=== PATIENT | male | born 1955 | race Caucasian/White ===

== ENCOUNTER 2018-12-26 18:27 | Emergency (ER) | payer BC ==
[2018-12-26] MEDS ORDERED: diphenhydrAMINE 50 MG/ML VIAL ONE (19:28)
[2018-12-26] MEDS ORDERED: Ketorolac Tromethamine 30 MG/ML VIAL ONE (19:28)
[2018-12-26] MEDS ORDERED: Metoclopramide HCl 10 MG/2 ML VIAL ONE (19:28)
--- NOTE | 2018-12-26 21:16 | CT ---
FCT head without contrast: Multiple axial tomograms obtained through the head without IV enhancement. INDICATIONS: Headache COMPARISON: None FINDINGS: Ventricles have normal size and position. No evidence of intracranial mass, hemorrhage, edema, or infarct. Visualized sinuses and mastoids appear clear. Bony calvarium appears unremarkable. IMPRESSION: No acute finding
[2018-12-26 21:20] LABS: Hemoglobin 12.3 g/dL (14.0-18.0); Mean Corpuscular HGB CONC 31.6 g/dL (32.0-36.0); Mean Corpuscular Hemoglobin 24.7 pg (27.0-31.0); Mean Corpuscular Volume 78.1 fL (78.0-98.0); Mean Platelet Volume 7.4 fL (7.4-10.4); Platelet Count 279 thou/uL (130-400); RBC Distribution Width 14.1 % (11.5-14.5); Red Blood Cell (RBC) Count 4.97 mill/uL (4.70-6.10); White Blood Cell (WBC) Count 5.2 thou/uL (4.8-10.8)
[2018-12-26 21:31] LABS: ALT (SGPT) 18 U/L (8-55); AST (SGOT) 17 U/L (5-34); Albumin 3.5 g/dL (3.4-4.8); Alkaline Phosphatase 79 U/L (40-150); Anion Gap 9 mmol/L (10-20); BUN (Urea Nitrogen) 15 mg/dL (8.4-25.7); Bilirubin, Total 0.3 mg/dL (0.2-1.2); CRP (Inflammatory) Less than 0.50 mg/dL (= or < 0.5); Calc. Creatinine Clearance 0 mL/min (70-130); Calcium 8.2 mg/dL (7.8-10.44); Carbon Dioxide 27 mmol/L (23-31); Chloride 106 mmol/L (98-107); Estimated GFR-MDRD 73; Globulin 2.7 g/dL (2.4-3.5); Glucose 91 mg/dL (80-115); Protein, Total 6.2 g/dL (5.8-8.1); Sodium 138 mmol/L (136-145)
[2018-12-26] MEDS ORDERED: Acetaminophen 500 MG TAB ONE (21:43)
[2018-12-26 21:45] LABS: Band 1 % (5-11); Eosinophils 4 % (0-10); Lymphocytes 13 % (21-51); MDiff Complete? YES; Monocytes 15 % (0-10); Neutrophil 66 % (42-75); Reactive Lymphocytes 1 % (0-10)
== END 2018-12-26 23:30 | disposition home or self-care (01) ==
LOC: ERS 18:27
DX: F07.81 Postconcussional syndrome (principal)
CPT/HCPCS: 36415; 70450; 80053; 85025; 85652; 86140; 96361; 96365; 96367; 96375; J1200; J1885; J2765; J3475; J7050

== ENCOUNTER 2019-01-29 20:21 | Emergency (ER) | payer BC | END 2019-01-29 21:43 | disposition left against medical advice (07) | LOC: ERS 20:21 | DX: R51 Headache (principal) | CPT/HCPCS: 99283 ==

== ENCOUNTER 2019-07-19 06:51 | Outpatient (CLI) | payer OTHER ==
[2019-07-19 12:13] LABS: Hemoglobin 12.4 g/dL (14.0-18.0); Mean Corpuscular Hemoglobin 23.7 pg (27.0-31.0); Mean Corpuscular Volume 76.3 fL (78.0-98.0); Mean Platelet Volume 7.6 fL (7.4-10.4); Platelet Count 418 thou/uL (130-400); RBC Distribution Width 13.8 % (11.5-14.5); Red Blood Cell (RBC) Count 5.24 mill/uL (4.70-6.10); White Blood Cell (WBC) Count 7.3 thou/uL (4.8-10.8)
[2019-07-19 12:34] LABS: Anion Gap 13 mmol/L (10-20); BUN (Urea Nitrogen) 14 mg/dL (8.4-25.7); Calc. Creatinine Clearance 0 mL/min (70-130); Calcium 9.2 mg/dL (7.8-10.44); Carbon Dioxide 26 mmol/L (23-31); Chloride 104 mmol/L (98-107); Estimated GFR-MDRD 79; Glucose 84 mg/dL (80-115); Potassium 4.3 mmol/L (3.5-5.1); Sodium 139 mmol/L (136-145)
--- NOTE | 2019-07-23 09:57 | EKG ---
Test Reason : Blood Pressure : / mmHG Vent. Rate : 083 BPM Atrial Rate : 083 BPM P-R Int : 146 ms QRS Dur : 086 ms QT Int : 362 ms P-R-T Axes : 051 034 052 degrees QTc Int : 425 ms Normal sinus rhythm Cannot rule out Anterior infarct , age undetermined Abnormal ECG No previous ECGs available Confirmed by VARGAS BRAUN MD ([id number]) on 07/23/2019 9:57:08 AM Referred By: ALIE Confirmed By:VARGAS BRAUN MD
== END 2019-07-19 06:52 | disposition home or self-care (01) ==
LOC: LABBT 06:51
PROVIDERS: ATTEND Orthopaedic Surgery
DX: Z01.818 Encounter for other preprocedural examination (principal); M75.41 Impingement syndrome of right shoulder; M75.101 Unspecified rotator cuff tear or rupture of right shoulder, not specified as traumatic; M19.011 Primary osteoarthritis, right shoulder
CPT/HCPCS: 80048; 85027; 93005; 93010

== ENCOUNTER 2019-07-22 12:04 | Day surgery (SDC) | payer OTHER ==
[2019-07-19 11:33] VITALS: BMI 28.6
[2019-07-22] MEDS ORDERED: Fentanyl 100 MCG/2 ML VIAL ONE ×2 (13:43→15:26)
[2019-07-22] MEDS ORDERED: Midazolam HCl 2 mg/2 ml Vial ONE (13:43)
[2019-07-22] MEDS ORDERED: Ketorolac Tromethamine 30 MG/ML VIAL IVP PRN (13:52)
[2019-07-22] MEDS ORDERED: traMADol HCl 50 MG TAB PO PRN ×2 (13:52)
[2019-07-22] MEDS ORDERED: Ondansetron PF 4 MG/2 ML Vial IVP PRN (13:52)
[2019-07-22] MEDS ORDERED: Zolpidem Tartrate 5 MG TAB PO PRN (13:52)
[2019-07-22] MEDS ORDERED: Promethazine HCl 25 MG/ML VIAL IM PRN (13:52)
[2019-07-22] MEDS ORDERED: Ropivacaine 0.2% 550 ML 550 ML NERVE BLCK SCH (13:52)
[2019-07-22] MEDS ORDERED: HYDROcodone/Acetaminophen 10/325 mg Tablet PO PRN ×2 (13:52)
--- NOTE | 2019-07-22 21:57 | OP ---
DATE OF PROCEDURE: 07/22/2019 PREOPERATIVE DIAGNOSES: 1. Severe impingement of the right shoulder with rotator cuff tear. 2. Right acromioclavicular arthritis. POSTOPERATIVE DIAGNOSES: 1. Severe impingement of the right shoulder with rotator cuff tear. 2. Right acromioclavicular arthritis. PROCEDURES PERFORMED: Arthroscopy of the right shoulder with subacromial decompression, rotator cuff repair, and excision of distal clavicle. ANESTHESIA: General. TECHNIQUE: The patient had a block performed preoperatively. He was given preoperative IV antibiotics, taken to operating room, placed in a supine position. Satisfactory general anesthesia was performed. The patient was then placed in the left lateral decubitus position. All bony prominences were well padded. The right upper extremity was placed in 15 pounds traction. The right shoulder and upper extremity were sterilely prepped and draped in usual fashion. The shoulder was then arthroscoped through the usual posterior, anterolateral, and superolateral portals. Upon entering the shoulder joint, the shoulder joint itself has no arthritic changes. Articular cartilage over the humerus and glenoid looked very good. The biceps tendon was intact and was normal. The labrum was also thoroughly inspected and probed and was normal. The undersurface of the supraspinatus tendon did have tearing. The subacromial space was then entered. There was significant amount of bursitis and much of the bursa was removed with a shaver. 90-degree ArthroWand was used to remove the soft tissue from underneath the acromion and at the acromioclavicular joint. A high-speed bur was used to thin down the acromion, also through the anterior portal the bur was used to excise the distal clavicle. The supraspinatus tendon tear was then visualized by removing more of the inflamed bursa and the rotator cuff tear was repaired using two 2.75 PushLock anchors, both in the medial row and the lateral row and using FiberTape. This provided excellent repair and fixation of the rotator cuff. During the procedure, all of the debris was irrigated out of the shoulder and subacromial space. The instruments were removed. The portals were closed with 3-0 Rapide. Sterile dressing was applied. The arm was taken out of traction and the patient was placed in the supine position. He was awakened, extubated, and transferred to recovery room in stable condition. ESTIMATED BLOOD LOSS: Minimal. COMPLICATIONS: None. DISCHARGE MEDICATIONS: Bruce 10 one every 4-6 hours as needed for pain #40. Follow up in my office in 1 week. The patient was placed in a shoulder immobilizer. Job ID: [id number]
== END 2019-07-22 20:15 | disposition home or self-care (01) ==
LOC: SDC 12:04
PROVIDERS: ATTEND Orthopaedic Surgery
PROC: 0RNJ4ZZ Release Right Shoulder Joint, Percutaneous Endoscopic Approach (ICD-10-PCS; principal; 2019-07-22)
PROC: 0PB94ZZ Excision of Right Clavicle, Percutaneous Endoscopic Approach (ICD-10-PCS; principal; 2019-07-22)
PROC: 0LQ14ZZ Repair Right Shoulder Tendon, Percutaneous Endoscopic Approach (ICD-10-PCS; principal; 2019-07-22)
PROC: 3E0T3BZ Introduction of Anesthetic Agent into Peripheral Nerves and Plexi, Percutaneous Approach (ICD-10-PCS; principal; 2019-07-22)
PROC: 3E0T3GC Introduction of Other Therapeutic Substance into Peripheral Nerves and Plexi, Percutaneous Approach (ICD-10-PCS; principal; 2019-07-22)
DX: S46.011A Strain of muscle(s) and tendon(s) of the rotator cuff of right shoulder, initial encounter (principal); M19.011 Primary osteoarthritis, right shoulder; M25.811 Other specified joint disorders, right shoulder; M75.51 Bursitis of right shoulder; G89.18 Other acute postprocedural pain; Z79.1 Long term (current) use of non-steroidal anti-inflammatories (NSAID); Z79.899 Other long term (current) drug therapy; V89.2XXA Person injured in unspecified motor-vehicle accident, traffic, initial encounter
CPT/HCPCS: A4306; C1713; J0690; J2250; J2795; J3010

== ENCOUNTER 2020-06-12 09:01 | Outpatient (CLI) | payer OTHER ==
[~2020-06-12 09:01] MED LIST: EPINEPHrine 1 MG/ML AMP ONE; Gadobenate Dimeglumine 529 MG/1 ML (20ML VIAL) ONE; Iopamidol 300 61% 50 ML VIAL FS ONE; Lidocaine 1% PF 10 ML AMP ONE
--- NOTE | 2020-06-12 10:48 | RAD ---
Right shoulder arthrogram fluoroscopic guided HISTORY: Internal derangement. Shoulder pain. FINDINGS: After explaining the procedure and answering all questions, the anterior aspect of the righ t shoulder was prepped and draped in usual sterile fashion. Sterile technique, buffered local anesthesia, fluoroscopic guidance, and an anterior approach were us ed to carefully advance the tip of a 22-gauge spinal needle to the joint capsule at the level of the humeral head. Approximately 8 cc of a liquid mixture containing normal saline, 1% lidocaine, iodinated contrast, an d small amounts of gadolinium and epinephrine were then instilled into the joint capsule under fluoroscopic control. Needle was removed. Patient tolerated the procedure well and was transferred to MRI in good condition for further imaging. Spot images show metallic anchors of the humeral head from prior surgery. No gross leakage of contrast from the joint capsule evident. Fluoroscopy time 0.3 minutes. IMPRESSION : Technically successful right shoulder arthrogram. No full-thickness rotator cuff tear evident. MRI is pending.
--- NOTE | 2020-06-12 12:53 | MRI ---
MR ARTHROGRAM OF THE RIGHT SHOULDER: Date: 06/12/2020 INDICATION: History of right shoulder pain. COMPARISON: Right shoulder arthrogram radiograph dated 06/12/2020. FINDINGS: Motion artifact limits image detail on the examination. The patient also could not tolerate the ABER examination. There is postprocedural change of a right rotator cuff repair. There is now a full thick ness tear involving the posterior supraspinatus and anterior infraspinatus at the footprint measuring 0.8 x 0.9 cm in its greatest mediolateral AP dimensions respectively. There is tendinosis in the sup raspinatus and infraspinatus. Biceps tendon is located. Biceps anchor complex is intact. Glenoid labr um is intact. There is mild AC joint hypertrophy. There is postprocedural change of a distal clavicle excision. No rotator cuff atrophy is grossly evident. IMPRESSION: 1. Full thickness rotator cuff tear involving the posterior supraspinatus and anterior infraspinatus . 2. Postprocedural change of prior rotator cuff repair and prior distal clavicle excision. POS: BH
== END 2020-06-12 09:02 | disposition home or self-care (01) ==
LOC: RAD 09:01
PROVIDERS: ATTEND Orthopaedic Surgery
DX: M75.101 Unspecified rotator cuff tear or rupture of right shoulder, not specified as traumatic (principal); M75.121 Complete rotator cuff tear or rupture of right shoulder, not specified as traumatic; Z98.890 Other specified postprocedural states
CPT/HCPCS: 23350; A9577; J0171; J2001; Q9967

== ENCOUNTER 2020-08-07 07:23 | Outpatient (CLI) | payer OTHER ==
[2020-08-07 15:22] LABS: Hemoglobin 11.5 g/dL (14.0-18.0); Mean Corpuscular HGB CONC 30.6 G/DL (32.0-36.0); Mean Platelet Volume 9.9 fl (7.4-10.4); Platelet Count 568 10x3/uL (130-400); RBC Distribution Width 16.8 % (11.5-14.5); Red Blood Cell (RBC) Count 5.22 10x6/uL (4.40-5.80); White Blood Cell (WBC) Count 6.8 10x3/uL (4.5-11.0)
[2020-08-07 15:28] LABS: Anion Gap 14 mmol/L (10-20); BUN (Urea Nitrogen) 13 mg/dL (8.4-25.7); Calc. Creatinine Clearance 0 mL/min (70-130); Calcium 9.2 mg/dL (7.8-10.44); Carbon Dioxide 24 mmol/L (23-31); Chloride 102 mmol/L (98-107); Estimated GFR-MDRD 78; Glucose 103 mg/dL (80-115); Potassium 4.1 mmol/L (3.5-5.1); Sodium 136 mmol/L (136-145)
[2020-08-08 13:39] LABS: SARS-CoV-2 MS2 Positive; SARS-CoV-2 N Gene Negative; SARS-CoV-2 S Gene Negative; SARS-CoV-2 by NAA Not Detected (NotDetected); SARS-CoV-2 orf1ab Negative
--- NOTE | 2020-08-11 08:36 | EKG ---
Test Reason : PREOP Blood Pressure : / mmHG Vent. Rate : 077 BPM Atrial Rate : 077 BPM P-R Int : 142 ms QRS Dur : 088 ms QT Int : 362 ms P-R-T Axes : 069 056 058 degrees QTc Int : 409 ms Normal sinus rhythm Normal ECG No previous ECGs available Confirmed by VARGAS BRAUN MD ([id number]) on 08/11/2020 8:35:58 AM Referred By: ALIE Confirmed By:VARGAS BRAUN MD
== END 2020-08-07 07:24 | disposition home or self-care (01) ==
LOC: LABBT 07:23
PROVIDERS: ATTEND Orthopaedic Surgery
DX: Z01.818 Encounter for other preprocedural examination (principal); M75.101 Unspecified rotator cuff tear or rupture of right shoulder, not specified as traumatic; Z20.828 Contact with and (suspected) exposure to other viral communicable diseases
CPT/HCPCS: 80048; 85027; 87635; 93005; 93010; U0003

== ENCOUNTER 2020-08-10 06:04 | Day surgery (SDC) | payer OTHER ==
[2020-08-09 11:20] VITALS: BMI 25.7
[2020-08-10] MEDS ORDERED: Fentanyl 100 MCG/2 ML VIAL ONE ×3 (06:37→10:17)
[2020-08-10] MEDS ORDERED: Midazolam HCl 2 mg/2 ml Vial ONE (06:37)
[2020-08-10] MEDS ORDERED: Bupivacaine 0.25% HCL 30 ML VIAL ONE (08:14)
[2020-08-10] MEDS ORDERED: Lidocaine 1% w/Epinephrine 1:100K 20 ML VIAL ONE (08:14)
[2020-08-10] MEDS ORDERED: Ondansetron PF 4 MG/2 ML Vial IVP PRN (08:15)
[2020-08-10] MEDS ORDERED: Zolpidem Tartrate 5 MG TAB PO PRN (08:15)
[2020-08-10] MEDS ORDERED: Ropivacaine 0.2% 550 ML 550 ML NERVE BLCK SCH (08:15)
[2020-08-10] MEDS ORDERED: Ketorolac Tromethamine 30 MG/ML VIAL IVP PRN (08:15)
[2020-08-10] MEDS ORDERED: HYDROcodone/Acetaminophen 5/325 mg Tablet PO PRN ×2 (08:15)
[2020-08-10] MEDS ORDERED: traMADol HCl 50 MG TAB PO PRN ×2 (08:15)
[2020-08-10] MEDS ORDERED: Promethazine HCl 25 MG/ML VIAL IM PRN (08:15)
[2020-08-10] MEDS ORDERED: Glycopyrrolate 0.2 MG/ML 5 ML SYRINGE ONE (09:46)
[2020-08-10] MEDS ORDERED: Rocuronium Bromide 10 MG/ML (10ML VIAL) ONE (09:46)
[2020-08-10] MEDS ORDERED: Ondansetron PF 4 MG/2 ML Vial ONE (09:46)
[2020-08-10] MEDS ORDERED: Ropivacaine 0.2% HCl/PF (40 MG/20 ML VIAL) ONE (09:46)
[2020-08-10] MEDS ORDERED: Ropivacaine 0.5% HCl/PF (150 MG/30 ML VIAL) ONE (09:46)
[2020-08-10] MEDS ORDERED: PROPOFOL 200 MG/20 ML VIAL ONE (09:46)
[2020-08-10] MEDS ORDERED: Ketorolac Tromethamine 30 MG/ML VIAL ONE (09:46)
[2020-08-10] MEDS ORDERED: PHENYLEPHRINE-NS 100 MCG/ML 10 ML SYRINGE ONE (09:46)
[2020-08-10] MEDS ORDERED: Dexamethasone 20 MG/5 ML VIAL ONE (09:46)
[2020-08-10] MEDS ORDERED: Lidocaine 1% PF 5 ML VIAL ONE (09:46)
--- NOTE | 2020-08-10 10:06 | OP ---
DATE OF PROCEDURE: 08/10/2020 PREOPERATIVE DIAGNOSIS: Recurrent tear of rotator cuff of the right shoulder. POSTOPERATIVE DIAGNOSIS: Recurrent tear of rotator cuff of the right shoulder. PROCEDURES PERFORMED: Arthroscopy of the right shoulder with subacromial decompression and rotator cuff repair. ANESTHESIA: General. DESCRIPTION OF PROCEDURE: The patient had a supraclavicular block performed prior to surgery. He was given preoperative IV antibiotics, taken to the operating room, placed in supine position. Satisfactory general anesthesia was performed. The patient was then placed in the left lateral decubitus position. All bony prominences were well padded. The right upper extremity was placed in 15 pounds of traction. The right shoulder and upper extremity were sterilely prepped and draped in usual fashion. The shoulder was scoped initially through the posterior portal. There were no arthritic changes in the shoulder joint. The biceps tendon was intact. The labrum was intact. The subacromial space was entered. There was quite a bit of scar tissue that had formed. Scar tissue was removed using both 90-degree ArthroWand and a shaver as well as high-speed harrison. The undersurface of the acromion was cleaned up and thinned down. The rotator cuff was inspected and there were several recurrent tears at the junction of the posterior aspect of the supraspinatus tendon and the superior aspect of the infraspinatus tendon. The ArthroWand was used to clean up the tears, and then the rotator cuff was repaired using two anchors medially, two anchors laterally with Arthrex 4.75 anchors and FiberTape in a crisscrossing configuration. This provided excellent repair of the rotator cuff. During the procedure, all the debris was irrigated out of the shoulder joint and subacromial space. The instruments were removed. The portals were closed using 3-0 Rapide and sterile dressing was applied. The arm was taken out of traction. He was placed in a shoulder immobilizer. He was then awakened, extubated, and transferred to recovery room in stable condition. ESTIMATED BLOOD LOSS: Minimal. COMPLICATIONS: None. DISCHARGE MEDICATION: Bybee 10 one every 6 hours as needed for pain, #40. Follow up in my office next week. Job ID: [id number]
== END 2020-08-10 11:40 | disposition home or self-care (01) ==
LOC: SDC 06:04
PROVIDERS: ATTEND Orthopaedic Surgery
PROC: 0LQ14ZZ Repair Right Shoulder Tendon, Percutaneous Endoscopic Approach (ICD-10-PCS; principal; 2020-08-10)
PROC: 3E0T3BZ Introduction of Anesthetic Agent into Peripheral Nerves and Plexi, Percutaneous Approach (ICD-10-PCS; principal; 2020-08-10)
PROC: 0RNJ4ZZ Release Right Shoulder Joint, Percutaneous Endoscopic Approach (ICD-10-PCS; principal; 2020-08-10)
DX: M75.101 Unspecified rotator cuff tear or rupture of right shoulder, not specified as traumatic (principal); G89.18 Other acute postprocedural pain; Z79.899 Other long term (current) drug therapy
CPT/HCPCS: A4306; C1713; J0690; J1100; J1885; J2250; J2405; J2704; J2795; J3010; S0020

== ENCOUNTER 2021-07-05 14:24 | Outpatient (CLI) | payer OTHER | END 2021-07-05 14:25 | disposition home or self-care (01) | LOC: BICMRI 14:24 | PROVIDERS: ATTEND Orthopaedic Surgery | DX: M25.511 Pain in right shoulder (principal); Z98.890 Other specified postprocedural states ==